=== PATIENT | male | born 1980 | race Caucasian/White ===

== ENCOUNTER 2016-07-24 18:22 | Observation (INO) | payer SELFPAY ==
[~2016-07-24] VITALS: Ht 182.9 cm; Wt 95.0 kg
[~2016-07-24 18:22] MED LIST: BACT800T5 PO; CEPH500 PO
[2016-07-24 18:24] VITALS: BP 156/93; PULSE 70; RESP 16; TEMP 98.6; O2SAT 95
[2016-07-24 18:25] VITALS: BP 164/102; PULSE 66
[2016-07-24] MEDS ORDERED: ASPIRIN 81 MG CHEW TAB PO ONE (18:45)
[2016-07-24] MEDS ORDERED: NITROGLYCERIN 2% OINT 1 GM PACKET TOP ONE (18:45)
[2016-07-24] MEDS ORDERED: SODIUM CHLORIDE 0.9% FLUSH 10 ML FLUSH IVF PRN (18:45)
[2016-07-24] MEDS ORDERED: SODIUM CHLORID 0.9% 500 ML INJ 500 ML IV ONE (18:45)
--- NOTE | 2016-07-24 18:46 | PD ---
HPI Chief Complaint: Chest Pain Time Seen by Provider: 18:38 Travel History International Travel<30 days: No Contact w/Intl Traveler<30days: No Traveled to known affect area: No History of Present Illness HPI The patient is a 36-year-old male who presents emergency department for chest pain. The patient recently moved from [facility] to the [facility] several months ago. The patient developed chest pain earlier today after waking. The chest pain is intermittent, left-sided, pressure, radiates to the left arm and left back, is associated with shortness of breath and diaphoresis. The patient's pain is worse with exertion, alleviated at rest, and described as pressure. The patient denies any nausea, vomiting, or abdominal pain. The patient does have a history of hypertension, tobacco use at one pack of cigarettes per day, and significant family medical history for early heart disease with his mother. He denies any known history of hyperlipidemia, diabetes, DVT, or PE. He denies any edema to lower extremities. The symptoms are moderate, worse with exertion, and alleviated at rest. He denies any known history of previous CAD. PFSH Past Medical History Narrative Medical Hypertension Diminished Hearing: No Past Surgical History Narrative Surgical Denies Social History Alcohol Use: Yes (occl) Tobacco Use: Yes (pk a day) Substance Use: No Allergies-Medications (Allergen,Severity, Reaction): Coded Allergies: No Known Allergies (Unverified , 07/24/16) Reported Meds & Prescriptions Reported Meds & Active Scripts Active Reported Amlodipine (Amlodipine Besylate) 5 Mg Tab 5 Mg PO DAILY Lisinopril 20 Mg Tab 20 Mg PO DAILY Betaxolol (Betaxolol HCl) 10 Mg Tab 10 Mg PO DAILY Betaxolol (Betaxolol HCl) 20 Mg Tab 20 Mg PO DAILY [Hypothiazide ] 25 Mg PO DAILY Aspirin 81 Mg Chew 81 Mg CHEW DAILY Review of Systems Except as stated in HPI: all other systems reviewed are Neg General / Constitutional: No: Fever HENT: Positive: Lightheadedness Cardiovascular: Positive: Chest Pain or Discomfort, Diaphoresis, Dyspnea on exertion Respiratory: Positive: Shortness of Breath Gastrointestinal: No: Nausea, Vomiting, Abdominal Pain Neurologic: Positive: Dizziness Physical Exam Narrative GENERAL: Awake, alert, pleasant 36-year-old male who appears his stated age and is in no acute respiratory distress. SKIN: Warm and dry. HEAD: Atraumatic. Normocephalic. EYES: Pupils equal and round. No scleral icterus. No injection or drainage. ENT: No nasal bleeding or discharge. Mucous membranes pink and moist. NECK: Trachea midline. No JVD. CARDIOVASCULAR: Regular rate and rhythm. No murmur appreciated. Palpation the chest wall does not reproduce his symptoms. RESPIRATORY: No accessory muscle use. Clear to auscultation. Breath sounds equal bilaterally. GASTROINTESTINAL: Abdomen soft, non-tender, nondistended. No epigastric tenderness. No rebound tenderness. MUSCULOSKELETAL: No obvious deformities. No clubbing. No cyanosis. No edema. NEUROLOGICAL: Awake and alert. No obvious cranial nerve deficits. Motor grossly within normal limits. Normal speech. PSYCHIATRIC: Appropriate mood and affect; insight and judgment normal. Data Data Last Documented VS Vital Signs Date Time Temp Pulse Resp B/P Pulse Ox O2 Delivery O2 Flow Rate FiO2 07/24/16 19:01 98 Nasal Cannula 2 07/24/16 18:58 69 131/71 07/24/16 18:24 98.6 16 Orders Electrocardiogram (07/24/16 ) Ckmb (Isoenzyme) Profile (07/24/16 18:38) Complete Blood Count With Diff (07/24/16 18:38) Comprehensive Metabolic Panel (07/24/16 18:38) Magnesium (Mg) (07/24/16 18:38) Prothrombin Time / Inr (Pt) (07/24/16 18:38) Act Partial Throm Time (Ptt) (07/24/16 18:38) Troponin I (07/24/16 18:38) Chest, Single Ap (07/24/16 18:38) Ecg Monitoring (07/24/16 18:38) Bilateral Bp Monitoring (07/24/16 18:38) Iv Access Insert/Monitor (07/24/16 18:38) Oximetry (07/24/16 18:38) Oxygen Administration (07/24/16 18:38) Aspirin Chew (Aspirin Chew) (07/24/16 18:45) Nitroglycerin 2% Oint (Nitroglycerin 2% (07/24/16 18:45) Sodium Chloride 0.9% Flush (Ns Flush) (07/24/16 18:45) Sodium Chlorid 0.9% 500 Ml Inj (Ns 500 M (07/24/16 18:45) CKMB (07/24/16 18:55) CKMB% (07/24/16 18:55) Admit Order (Ed Use Only) (07/24/16 19:58) Labs Laboratory Tests Test 07/24/16 18:55 White Blood Count 12.8 TH/MM3 Red Blood Count 5.21 MIL/MM3 Hemoglobin 16.0 GM/DL Hematocrit 46.0 % Mean Corpuscular Volume 88.3 FL Mean Corpuscular Hemoglobin 30.8 PG Mean Corpuscular Hemoglobin 34.8 % Concent Red Cell Distribution Width 13.1 % Platelet Count 184 TH/MM3 Mean Platelet Volume 9.0 FL Neutrophils (%) (Auto) 64.4 % Lymphocytes (%) (Auto) 22.9 % Monocytes (%) (Auto) 9.9 % Eosinophils (%) (Auto) 2.4 % Basophils (%) (Auto) 0.4 % Neutrophils # (Auto) 8.3 TH/MM3 Lymphocytes # (Auto) 2.9 TH/MM3 Monocytes # (Auto) 1.3 TH/MM3 Eosinophils # (Auto) 0.3 TH/MM3 Basophils # (Auto) 0.1 TH/MM3 CBC Comment DIFF FINAL Differential Comment Prothrombin Time 10.7 SEC Prothromb Time International 1.0 RATIO Ratio Activated Partial 27.0 SEC Thromboplast Time Sodium Level 137 MEQ/L Potassium Level 3.5 MEQ/L Chloride Level 103 MEQ/L Carbon Dioxide Level 26.8 MEQ/L Anion Gap 7 MEQ/L Blood Urea Nitrogen 19 MG/DL Creatinine 0.92 MG/DL Estimat Glomerular Filtration 92 ML/MIN Rate Random Glucose 100 MG/DL Calcium Level 9.1 MG/DL Magnesium Level 2.0 MG/DL Total Bilirubin 0.3 MG/DL Aspartate Amino Transf 20 U/L (AST/SGOT) Alanine Aminotransferase 35 U/L (ALT/SGPT) Alkaline Phosphatase 64 U/L Total Creatine Kinase 124 U/L Creatine Kinase MB 0.8 NG/ML Troponin I LESS THAN 0.02 NG/ML Total Protein 7.1 GM/DL Albumin 3.5 GM/DL MDM Medical Decision Making Medical Screen Exam Complete: Yes Emergency Medical Condition: Yes Medical Record Reviewed: Yes Interpretation(s) EKG reveals normal sinus rhythm with a rate of 76. Inverted T waves in lead 3. Last Impressions Chest X-Ray 07/24/16 0770 Signed Impressions: Service Date/Time: Sunday, July 24, 2016 18:51 - CONCLUSION: No acute disease. Andre Sheets MD Laboratory Tests Test 07/24/16 18:55 White Blood Count 12.8 TH/MM3 Red Blood Count 5.21 MIL/MM3 Hemoglobin 16.0 GM/DL Hematocrit 46.0 % Mean Corpuscular Volume 88.3 FL Mean Corpuscular Hemoglobin 30.8 PG Mean Corpuscular Hemoglobin 34.8 % Concent Red Cell Distribution Width 13.1 % Platelet Count 184 TH/MM3 Mean Platelet Volume 9.0 FL Neutrophils (%) (Auto) 64.4 % Lymphocytes (%) (Auto) 22.9 % Monocytes (%) (Auto) 9.9 % Eosinophils (%) (Auto) 2.4 % Basophils (%) (Auto) 0.4 % Neutrophils # (Auto) 8.3 TH/MM3 Lymphocytes # (Auto) 2.9 TH/MM3 Monocytes # (Auto) 1.3 TH/MM3 Eosinophils # (Auto) 0.3 TH/MM3 Basophils # (Auto) 0.1 TH/MM3 CBC Comment DIFF FINAL Differential Comment Sodium Level 137 MEQ/L Potassium Level 3.5 MEQ/L Chloride Level 103 MEQ/L Carbon Dioxide Level 26.8 MEQ/L Anion Gap 7 MEQ/L Blood Urea Nitrogen 19 MG/DL Creatinine 0.92 MG/DL Estimat Glomerular Filtration 92 ML/MIN Rate Random Glucose 100 MG/DL Calcium Level 9.1 MG/DL Magnesium Level 2.0 MG/DL Total Bilirubin 0.3 MG/DL Aspartate Amino Transf 20 U/L (AST/SGOT) Alanine Aminotransferase 35 U/L (ALT/SGPT) Alkaline Phosphatase 64 U/L Total Creatine Kinase 124 U/L Troponin I LESS THAN 0.02 NG/ML Total Protein 7.1 GM/DL Albumin 3.5 GM/DL Differential Diagnosis Differential diagnosis includes acute coronary syndrome, pericarditis, myocarditis, pericardial effusion, pleural effusion, STEMI, pulmonary embolism, deconditioning, GERD, esophageal spasm. Narrative Course IV was established, labs are drawn and sent, and the patient was placed on cardiac telemetry monitoring and continuous pulse oximetry monitoring. EKG was ordered and interpreted. Chest x-ray was ordered. The patient was administered aspirin 162 mg orally and Nitropaste 1 inch to the chest wall. Chest x-rays unremarkable. Initial troponin is negative. The patient does have left-sided chest pain described as pressure which is exertional with shortness of breath and also risk factors, therefore, will be 23 hour observation to the chest pain Center. Physician Communication Physician Communication The patient will be a 23 hour observation to the chest pain center for serial cardiac enzymes and further evaluation by cardiology. Diagnosis Primary Impression: Chest pain Qualified Code: R07.9 - Chest pain, unspecified type Admitting Information Admitting Physician Requests: Observation Condition: Stable Xavi Garcia MD Jul 24, 2016 18:46
[2016-07-24 18:58] VITALS: BP 131/71; PULSE 69
[2016-07-24] MEDS ORDERED: [UNRECOGNIZED DRUG - CODE] PO (19:13)
[2016-07-24] MEDS ORDERED: ASPI81CH CHEW (19:13)
[2016-07-24] MEDS ORDERED: BETA10TA PO (19:13)
[2016-07-24] MEDS ORDERED: AMLO5TAB2 PO (19:13)
[2016-07-24] MEDS ORDERED: LISI-515 PO (19:13)
[2016-07-24] MEDS ORDERED: [UNRECOGNIZED DRUG - OTHER] PO (19:13)
--- NOTE | 2016-07-24 19:20 | RADRPT ---
EXAM DATE/TIME: 07/24/2016 18:51 [facility] COMPARISON: No previous studies available for comparison. INDICATIONS : Chest pain. MEDICAL HISTORY : Carcinoma, lung. SURGICAL HISTORY : None. ENCOUNTER: Initial ACUITY: 1 day PAIN SCORE: 6/10 LOCATION: chest FINDINGS: A single view of the chest demonstrates the lungs to be symmetrically aerated without evidence of mas s, infiltrate or effusion. The cardiomediastinal contours are unremarkable. Posttraumatic deformity of the right shoulder appears remote. CONCLUSION: No acute disease. Andre Sheets MD on July 24, 2016 at 19:18 Board Certified Radiologist. This report was verified electronically.
[2016-07-24 19:21] LABS: AUTOMATED NEUTROPHIL # 8.3 TH/MM3 (1.8-7.7); BASOPHIL # 0.1 TH/MM3 (0-0.2); BASOPHIL % 0.4 % (0.0-2.0); EOSINOPHIL # 0.3 TH/MM3 (0-0.4); EOSINOPHIL % 2.4 % (0.0-4.0); HEMO FLAGS DIFF FINAL; LYMPH % 22.9 % (9.0-44.0); LYMPHOCYTE # 2.9 TH/MM3 (1.0-4.8); MEAN CELL VOLUME 88.3 FL (80.0-100.0); MEAN CORPUSCULAR HEMOGLOBIN 30.8 PG (27.0-34.0); MEAN CORPUSCULAR HGB CONC 34.8 % (32.0-36.0); MONO % 9.9 % (0.0-8.0); NEUT % 64.4 % (16.0-70.0); PLATELET COUNT 184 TH/MM3 (150-450); RED BLOOD COUNT 5.21 MIL/MM3 (4.50-5.90); RED CELL DISTRIBUTION WIDTH 13.1 % (11.6-17.2); WHITE BLOOD COUNT 12.8 TH/MM3 (4.0-11.0)
[2016-07-24 19:43] LABS: ANION GAP 7 MEQ/L (5-15); AST (GOT) 20 U/L (15-37); BICARBONATE 26.8 MEQ/L (21.0-32.0); BLOOD UREA NITROGEN 19 MG/DL (7-18); CHLORIDE 103 MEQ/L (98-107); GLOMERULAR FILTRATION RATE 92 ML/MIN (>89); SODIUM (NA) 137 MEQ/L (136-145)
[2016-07-24 19:46] LABS: POTASSIUM 3.5 MEQ/L (3.5-5.1)
[2016-07-24 19:47] LABS: ALKALINE PHOSPHATASE 64 U/L (45-117); ALT (GPT) 35 U/L (12-78); CREATINE KINASE 124 U/L (39-308); TOTAL BILIRUBIN ADULT 0.3 MG/DL (0.2-1.0)
[2016-07-24 19:58] LABS: PROTHROMBIN TIME - PATIENT 10.7 SEC (9.8-11.6)
[2016-07-24 20:00] LABS: CKMB 0.8 NG/ML (0.5-3.6)
[2016-07-24] MEDS ORDERED: ONDANSETRON HCL 4 MG/2 ML VIAL IV PRN (20:00)
[2016-07-24] MEDS ORDERED: ACETAMINOPHEN/HYDROcodone 325 MG/7.5 MG TAB PO PRN (20:00)
[2016-07-24] MEDS ORDERED: MORPHINE SULFATE 4 MG/ML INJ IV PRN (20:00)
[2016-07-24] MEDS ORDERED: ACETAMINOPHEN 500 MG CPLT PO PRN (20:00)
[2016-07-24] MEDS ORDERED: SODIUM CHLORIDE 0.9% FLUSH 10 ML FLUSH IV FLUSH PRN (20:00)
[2016-07-24] MEDS ORDERED: NITROGLYCERIN 0.4 MG SL 25 TABS/BTL SL PRN (20:00)
[2016-07-24 21:22] VITALS: O2SAT 99
[2016-07-24] MEDS: SODIUM CHLORIDE 0.9% FLUSH 10 ML FLUSH IV FLUSH SCH (21:32)
[2016-07-24 22:09] VITALS: BP 116/73; PULSE 63; RESP 18; TEMP 98.7; O2SAT 93
[2016-07-24 22:40] LABS: CREATINE KINASE 105 U/L (39-308)
[2016-07-24 22:53] LABS: CKMB 0.7 NG/ML (0.5-3.6)
[2016-07-25] VITALS: PULSE 55
[2016-07-25 02:08] LABS: CREATINE KINASE 86 U/L (39-308)
[2016-07-25 03:35] VITALS: BP 110/78; PULSE 65; RESP 18; TEMP 98.6; O2SAT 95
[2016-07-25 04:00] VITALS: PULSE 65
[2016-07-25 08:35] VITALS: BP 114/74; PULSE 68; RESP 18; TEMP 97.8; O2SAT 95
[2016-07-25] MEDS: SODIUM CHLORIDE 0.9% FLUSH 10 ML FLUSH IV FLUSH SCH (08:45)
[2016-07-25] MEDS ORDERED: ASPIRIN 325 MG TAB PO SCH (09:00)
[2016-07-25] MEDS ORDERED: HYDR25TA5 PO (10:04)
--- NOTE | 2016-07-25 10:09 | HHI.HP ---
HPI Primary Care Physician Dr. Kaye Chief Complaint Chest pressure History of Present Illness 36-year-old male with hypertension and tobacco use presents to emergency room for further evaluation of chest discomfort. Onset yesterday at 10 [address]. Location left anterior chest, described as a pressure that came on quickly radiating to back and axillary area, duration 10 minutes, associated symptoms included dizziness and mild shortness of breath. No nausea, vomiting, or diaphoresis. Taking a deep breath helped. No known precipitating factors. Relieving factors was relaxing. Patient pulled over on side of road until episode subsided, then drove home to relax the rest of the day. Chest pressure came back at 5 PM. Characterized pressure, with same radiation to back and left axillary area. Duration 15 minutes, waxing and waning in severity. After second episode, he decided to come to the emergency room. He has never had pain like this in the past. Endorses past panic attacks however not similar to symptoms that brought him to ER. Endorses running 30 minutes daily without any chest discomfort. Review of Systems General: No fatigue,weakness, fever, chills, recent illness,or change in appetite. In his general state of health. In fact, over the last couple of months he has been trying to increase his exercise and lose some weight. HEENT: No HARDIN, no vision changes, no nasal congestion or drainage, no dysphasia CV: No current chest pain or pressure. No intermittent leg pain. RESP: No SOB, cough, wheeze, or recent URI. GI: No nausea, vomiting, bowel changes, diarrhea, constipation, pain, distention , melena, blood in the stool. : No dysuria, urgency, frequency, hematuria EXT: No lower leg edema, no paraesthesias MS: No discomfort or change in ROM NEURO: No change in memory, difficulty with balance, LOC, motor/sensory deficits PSYCH: States "I worry a lot and have had panic attacks before." Denies ever being prescribed medication for anxiety, stating "I don't want to take medications for anxiety." No depression. SKIN: No rashes, no concerning lesions Past Family Social History Allergies: Coded Allergies: No Known Allergies (Unverified , 07/24/16) Past Medical History Hypertension Past Surgical History None Reported Medications Reported Meds & Active Scripts Active Reported Amlodipine (Amlodipine Besylate) 5 Mg Tab 5 Mg PO DAILY Lisinopril 20 Mg Tab 20 Mg PO DAILY Betaxolol (Betaxolol HCl) 10 Mg Tab 10 Mg PO DAILY [Hydrothiazide ] 25 Mg PO DAILY Aspirin 81 Mg Chew 81 Mg CHEW DAILY Active Ordered Medications Current Medications Medications (Trade) Dose Ordered Sig/Samantha Route Start Time Stop Time Status Last Admin (Tylenol) 500 mg Q4H PRN PO 07/24/16 20:00 ([place] 7.5-325 Mg) 1 tab Q4H PRN PO 07/24/16 20:00 (Morphine Inj) 2 mg Q4H PRN IV 07/24/16 20:00 (Zofran Inj) 4 mg Q6H PRN IV 07/24/16 20:00 (Nitrostat Sl) 0.4 mg Q5M PRN SL 07/24/16 20:00 (Aspirin) 325 mg DAILY PO 07/25/16 09:00 07/25/16 08:45 Family History Noncontributory for early onset cardiovascular disease Social History Known hypertension. No known diabetes or hyperlipidemia. Active goes to the gym on a daily basis, runs 30 minutes daily. 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 Smokes tobacco 1 pack daily for past 15 years. Endorses occasional alcohol use. Denies any illegal drug use. Past cardiac testing No past cardiac testing or catheterizations. 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 Physical Exam Vital Signs Vital Signs Date Time Temp Pulse Resp B/P Pulse Ox O2 Delivery O2 Flow Rate FiO2 07/25/16 08:35 97.8 68 18 114/74 95 07/25/16 04:00 65 07/25/16 03:35 98.6 65 18 110/78 95 07/25/16 00:00 55 07/24/16 22:09 98.7 63 18 116/73 93 07/24/16 21:22 99 07/24/16 19:01 98 Nasal Cannula 2 07/24/16 18:58 69 131/71 07/24/16 18:50 Room Air 07/24/16 18:25 66 164/102 07/24/16 18:24 98.6 70 16 156/93 95 Room Air Physical Exam GENERAL: Alert WN, WD, NAD, pleasant, male HEAD: NC, AT EYES: Sclera clear, conjunctiva without injection, pupils equal and round NECK: Supple, no masses, trachea midline CV: RRR, without murmur, rub, gallop, no JVD, S1-S2 no S3-S4. No carotid bruits RESP: Clear lungs throughout bilateral, no crackles, wheeze, rhonchi, symmetrical chest rise, nonlabored, able to speak in full sentences ABD: Soft, NT, ND, no masses, positive bowel tones BACK: No CVAT, no scoliosis EXT: Pulses +24, no dependent edema MS: Normal tone 4 extremities, nontender, no obvious deformities, full range of motion NEURO: CN II through CN XII grossly intact, motor strength 5/5, gait WNL PSYCH: A+O 3, pleasant affect, appropriate speech, appropriate mood and affect , insight and judgment SKIN: Normal turgor, normal texture, no lesions, no rashes, brisk cap refill, even hair distribution Laboratory Laboratory Tests Test 07/24/16 07/24/16 07/25/16 18:55 21:50 01:15 White Blood Count 12.8 Red Blood Count 5.21 Hemoglobin 16.0 Hematocrit 46.0 Mean Corpuscular Volume 88.3 Mean Corpuscular Hemoglobin 30.8 Mean Corpuscular Hemoglobin 34.8 Concent Red Cell Distribution Width 13.1 Platelet Count 184 Mean Platelet Volume 9.0 Neutrophils (%) (Auto) 64.4 Lymphocytes (%) (Auto) 22.9 Monocytes (%) (Auto) 9.9 Eosinophils (%) (Auto) 2.4 Basophils (%) (Auto) 0.4 Neutrophils # (Auto) 8.3 Lymphocytes # (Auto) 2.9 Monocytes # (Auto) 1.3 Eosinophils # (Auto) 0.3 Basophils # (Auto) 0.1 CBC Comment DIFF FINAL Differential Comment Prothrombin Time 10.7 Prothromb Time International 1.0 Ratio Activated Partial 27.0 Thromboplast Time Sodium Level 137 Potassium Level 3.5 Chloride Level 103 Carbon Dioxide Level 26.8 Anion Gap 7 Blood Urea Nitrogen 19 Creatinine 0.92 Estimat Glomerular Filtration 92 Rate Random Glucose 100 Calcium Level 9.1 Magnesium Level 2.0 Total Bilirubin 0.3 Aspartate Amino Transf 20 (AST/SGOT) Alanine Aminotransferase 35 (ALT/SGPT) Alkaline Phosphatase 64 Total Creatine Kinase 124 105 86 Creatine Kinase MB 0.8 0.7 Troponin I LESS THAN 0.02 LESS THAN 0.02 LESS THAN 0.02 Total Protein 7.1 Albumin 3.5 Result Diagram: 07/24/16185407/24/161854 Imaging Last Impressions Chest X-Ray 07/24/16 1838 Signed Impressions: Service Date/Time: Sunday, July 24, 2016 18:51 - CONCLUSION: No acute disease. Andre Sheets MD Course EKGs 3 EKG show normal sinus rhythm, normal axis, with no ST or T-segment changes Assessment and Plan Assessment and Plan #1 Chest painadmitted to chest pain center. Ruled out with 3 EKGs, cardiac enzymes, and monitored overnight. Will be seen and evaluated by Dr. Bernardo Bailey. Discussed with patient most likely will perform an exercise stress test. Patient is agreeable to this plan of care. #2 Hypertensioncontinue home BP meds, continue to monitor. #3 Tobacco usediscussed and counseled in length risk of tobacco. Encouraged patient to quit smoking. #4 Anxietyencourage patient to discuss concerns with PCP if anxiety continues Nedra Carr Jul 25, 2016 10:08
--- NOTE | 2016-07-25 10:36 | HHI.DCPOC ---
Discharge Care Plan Diagnosis: (1) Atypical chest pain (2) Hypertension Goals to Promote Your Health * To prevent worsening of your condition and complications * To maintain your health at the optimal level Directions to Meet Your Goals Take your medications as prescribed Follow your dietary instruction Follow activity as directed Keep your appointments as scheduled Take your immunizations and boosters as scheduled If your symptoms worsen call your PCP, if no PCP go to Urgent Care Center or Emergency Room Smoking is Dangerous to Your Health. Avoid second hand smoke Call the 24-hour hour crisis hotline for domestic abuse at Nedra Carr Jul 25, 2016 10:36
[2016-07-25] MEDS ORDERED: HYDROCHLOROTHIAZIDE 25 MG TAB PO SCH (11:00)
[2016-07-25] MEDS ORDERED: LISINOPRIL 20 MG TAB PO SCH (11:00)
[2016-07-25] MEDS ORDERED: amLODIPine BESYLATE 5 MG TAB PO SCH (11:00)
--- NOTE | 2016-07-25 11:44 | TR ---
Date Performed: 07/25/2016 Time Performed: 09:03:37 DOCTOR: Bernardo Bailey DRUG LIST: CLINICAL HISTORY: REASON FOR TEST: CHEST PAIN RULE OUT ACUTE CORONARY SYNDROME REASON FOR ENDING: OBSERVATION: CONCLUSION: Zachery protocol completed. Stopped sec to reaching target heart rate and leg fatigue. Maximum TV=831 % Target HR Achieved=86.0% Maximum UE=913/76 Total Exercise Time=12:15. No reprod jeromy st pain. No ectopy. No st t segment changes to sugg ischemia. Good exercise tolerance. Normal bp resp onse. Quick and unremarkable recovery. COMMENTS: Conclusion: Normal treadmill exercise. No evidence of ischemia.
[2016-07-25] MEDS ORDERED: BETAXOLOL 10 MG PO SCH (12:00)
--- NOTE | 2016-07-25 15:49 | EKG ---
Date Performed: 07/24/2016 Time Performed: 18:36:17 PTAGE: 36 years EKG: Sinus rhythm NORMAL ECG NO PREVIOUS TRACING DOCTOR: Diego Pinon Interpretating Date/Time 07/25/2016 15:47:28
--- NOTE | 2016-07-25 16:09 | EKG ---
Date Performed: 07/24/2016 Time Performed: 22:13:59 PTAGE: 36 years EKG: SINUS BRADYCARDIA WITH SINUS ARRHYTHMIA Since previous tracing, no significant change noted BORDERLINE ECG PREVIOUS TRACING : 07/24/2016 18.36 DOCTOR: Diego Pinon Interpretating Date/Time 07/25/2016 16:08:52
--- NOTE | 2016-07-25 16:10 | EKG ---
Date Performed: 07/25/2016 Time Performed: 01:08:41 PTAGE: 36 years EKG: Sinus rhythm WITH SINUS ARRHYTHMIA Since previous tracing, no significant change noted NORMAL ECG PREVIOUS TRACING : 07/24/2016 22.13.59 DOCTOR: Diego Pinon Interpretating Date/Time 07/25/2016 16:09:23
== END 2016-07-25 12:23 | disposition home or self-care (01) ==
LOC: NEPA 18:22 → NEDA 20:00 → NEPHCDU 22:07
PROVIDERS: ADMIT Internal Medicine Interventional Cardiology; ATTEND Internal Medicine Interventional Cardiology
DX: R07.89 Other chest pain (principal); I10 Essential (primary) hypertension; F41.9 Anxiety disorder, unspecified; F17.210 Nicotine dependence, cigarettes, uncomplicated; Z82.49 Family history of ischemic heart disease and other diseases of the circulatory system; Z79.82 Long term (current) use of aspirin
CPT/HCPCS: 71010; 80053; 82550; 82552; 83735; 84484; 85025; 85610; 85730; 93005; 93017; G0378; J7040